=== PATIENT | female | born 1980 | race Hispanic/Latino ===

== ENCOUNTER → 2018-05-25 | Day surgery (SDC) | payer OTHER, MEDICARE ==
[2018-05-18 09:18] LABS: BASOPHILS # (AUTO) 0.1 (0.0-0.1); BASOPHILS % 0.6 % (0.0-1.0); EOSINOPHILS # (AUTO) 0.1 (0.0-0.4); EOSINOPHILS % 1.1 % (0.0-6.0); HEMATOCRIT 41.7 % (34.2-44.1); HEMOGLOBIN 13.7 g/dL (12.0-16.0); LYMPHOCYTES # (AUTO) 2.5 (1.0-3.2); LYMPHOCYTES % 31.5 % (18.0-39.1); MEAN CORPUSCULAR HEMOGLOBIN 29.7 pg (28-32); MEAN CORPUSCULAR HGB CONC 32.9 g/dL (31-35); MEAN CORPUSCULAR VOLUME 90.3 fL (81-99); MONOCYTES # (AUTO) 0.5 (0.2-0.8); MONOCYTES % 6.6 % (4.4-11.3); NEUTROPHILS # (AUTO) 4.7 (2.1-6.9); NEUTROPHILS % 59.7 % (38.7-80.0); PLATELET COUNT 279 x10e3/uL (140-360); RED BLOOD COUNT 4.62 x10e6/uL (3.6-5.1); RED CELL DISTRIBUTION WIDTH 12.5 % (11.7-14.4)
[~2018-05-25] MED LIST: ACETAMINOPHEN 1000 MG/100 ML IV ONE; BETAMETHASONE DISODIUM PHOS 6 MG/ML VIAL ONE; BUPIVACAINE HCL 0.5% INJ 30 ML VIAL INJ ONE; CEFAZOLIN SOD 1 GM VIAL ONE; CELEXA PO; CELEXA20 MG PO; CYCLOBENZAPRINE10 MG PO; DEXAMETHASONE SOD PHOS INJ 4 MG/ML VIAL ONE; DICYCLOMINE HCL20 MG PO; FENTANYL CITRATE/PF 100MCG/2 ML INJ ONE; LABETALOL HCL 5 MG/ML 20ML VIAL ONE; LIDOCAINE HCL 1% LOCAL INJ 20 ML VIAL ONE; LIDOCAINE HCL 2% LOCAL INJ 5 ML SDV VIAL INJ ONE; LORAZEPAM1 MG PO; LYRICA50 MG PO; MEPERIDINE HCL INJ 50 MG/ML INJ ONE; MIDAZOLAM HCL 2 MG/2 ML VIAL ONE; MULTIVITAMINS PO; MULTIVITAMINS1 EAC8 PO; MUPIROCIN 2% OINT 22 GM TUBE ONE; NORCO 10MG-325MG1 EA PO; NORCO 5-325 TA1 EACH PO; ONDANSETRON HCL INJ 2 MG/ML VIAL ONE; PANTOPRAZOLE SO40 MG PO; PHENERGAN PO; PROPOFOL IV EMULSION 10 MG/ML 20 ML VIAL ONE; ROCURONIUM BROMIDE 10 MG/ML 5ML VIAL ONE; SEVOFLURANE INHAL SOLN 250 ML PEN BTL ONE; SUGAMMADEX SODIUM 200 MG/2 ML VIAL IV ONE; SUMATRIPTAN SUC25 MG PO; TRAZODONE HCL50 MG PO; TRINTILLEX PO; ZOLPIDEM TARTRA10 MG PO
--- NOTE | 2018-05-25 09:47 | Operative Report ---
DATE OF PROCEDURE: May 25, 2018 PREOPERATIVE DIAGNOSES 1. Cyst, right foot. 2. Neuralgia, sural nerve, right foot. 3. Tarsal tunnel syndrome, right foot. POSTOPERATIVE DIAGNOSES 1. Cyst, right foot. 2. Neuralgia, sural nerve, right foot. 3. Tarsal tunnel syndrome, right foot. 4. Scar tissue to both the medial and lateral previous incisions. OPERATIVE PROCEDURES 1. Removal of cyst, right foot. 2. Neurolysis, sural nerve, right foot. 3. Tarsal tunnel release, right foot. 4. Neurolysis, medial plantar nerve, right foot. 5. Neurolysis, lateral plantar nerve, right foot. 6. Revision of hypertrophic scars times 2, right foot. 7. Trigger point shot of cortisone, right foot. 8. Application of posterior splint. ANESTHESIA: General. HEMOSTASIS: Pneumatic thigh tourniquet at 350 mmHg. PROCEDURE IN DETAIL: Patient was taken into the operating room and placed on the operating room table in the supine position. Following induction of general anesthesia by the anesthesiologist, Webril wraps were placed on the patient's right thigh followed by application of a right thigh tourniquet. The right lower extremity was then prepped and draped in the usual aseptic manner. The following procedure was then performed: PROCEDURE #1: Removal of cyst, right foot. Attention was directed to the lateral aspect of the right talotibial joint were a curvilinear incision was performed. The incision was deepened down to the subcutaneous tissue. A soft tissue mass was then encountered and excised from the operation site in toto and sent for pathological analysis. PROCEDURE #2: Neurolysis of sural nerve. The incision was then deepened further down into the subcutaneous tissue. A white soft tissue mass/nerve was then encountered full of adhesions. Utilizing meticulous dissection with the Metzenbaum scissors, the sural nerve was then released from all soft tissue adhesions. PROCEDURE #6: Revision of hypertrophic scar was then performed. A curvilinear incision was performed overlying the hypertrophic scar and excised from the operation site in toto. PROCEDURE #3: Tarsal tunnel release, right foot. Attention was then directed to the medial aspect of the right ankle where a curvilinear incision was performed. The incision was deepened down to the subcutaneous tissue utilizing meticulous dissection. The flexor neck vein was then cut utilizing Metzenbaum scissors exposing the adhesions surrounding the tibial nerve. Via use of Metzenbaum scissors and blunt dissection, the adhesions were released. Incision was then deepened further down into the jenn pedis. Jenn pedis was then released utilizing Metzenbaum scissors and blunt dissection. The tibial nerve was then followed to perform neurolysis of the medial and lateral plantar nerves. PROCEDURES #5 AND #6: Adhesions surrounding the medial and lateral plantar nerves were then resected. All areas were then copiously flushed with sterile antibiotic solution and suctioned. A curvilinear incision was then performed overlying the hypertrophic scar formation to the medial incision site. The hypertrophic scar was then excised in toto. All areas were then copiously flushed with sterile antibiotic solution and suctioned. Closure was then obtained utilizing 3-0 Vicryl for subcutaneous tissue and 4-0 nylon for skin in a horizontal mattress type fashion. PROCEDURE #7: Trigger point shot of cortisone was given to the medial and lateral aspect of the right talotibial joint. Then approximately 15 mL of 0.5% plain Marcaine plus 5 mL of Xylocaine plain were then used to achieve local anesthesia to the above-mentioned surgical area. Sterile dressing was applied. Upon release of the thigh tourniquet, blood hyperemia was noted immediate to all digits of the patient's right foot. PROCEDURE #8: Application of posterior splint. A properly posterior splint was then applied keeping the foot at 90 degrees with respect to the leg to try to prevent any type of scar tissue formation. Patient was then transferred from the OR to the recovery room with vital signs stable and neurovascular status intact. No intraoperative complications were encountered. Blood loss from the surgery was minimal. Patient to remain nonweightbearing with the aid crutches. Keep her foot elevated. Is to apply an ice pack to the ankle joint area. Patient understands no warranties or guarantees were given. Job#: [id number]
[2018-05-25 09:55] VITALS: BP 128/89
== END | disposition home or self-care (01) ==
LOC: OR 05:24
PROVIDERS: ATTEND Podiatrist Foot Surgery
DX: G57.51 Tarsal tunnel syndrome, right lower limb (principal); G58.8 Other specified mononeuropathies; M79.9 Soft tissue disorder, unspecified; L91.0 Hypertrophic scar; R53.1 Weakness; G43.909 Migraine, unspecified, not intractable, without status migrainosus; K21.9 Gastro-esophageal reflux disease without esophagitis; N20.0 Calculus of kidney; R07.9 Chest pain, unspecified; F41.9 Anxiety disorder, unspecified; Z01.812 Encounter for preprocedural laboratory examination
CPT/HCPCS: 11420 ×2; 28035; 28043; 36415; 64704 ×3; 81025; 85025; 88304; J0690; J0720; J1100; J2001 ×2; J2175; J2250; J2405; J3490